=== PATIENT | female | born 1975 | race African-American/Black ===

== ENCOUNTER 2017-06-01 21:09 | Emergency (ER) | payer OTHER ==
[~2017-06-01] VITALS: Ht 170.2 cm; Wt 90.7 kg
[~2017-06-01 21:09] MED LIST: BISA10SU12 RC; Docusate Sodium PO; LORA2TAB PO; PANT40TA2 PO; ZOLP10TA2 PO
[2017-06-01] MEDS ORDERED: TEMA15CA PO (21:39)
[2017-06-01] MEDS ORDERED: POLY17PO4 PO (21:39)
[2017-06-01] MEDS ORDERED: KETOROLAC TROMETHAMINE 30 MG INJ IM ONE (22:30)
[2017-06-01] MEDS ORDERED: KETOROLAC TROMETHAMINE 30 MG INJ ONE (22:36)
[2017-06-01 22:38] LABS: *BILIRUBIN,URIN NEGATIVE (NEGATIVE); *BLOOD, URINE NEGATIVE (NEGATIVE); *CLARITY,URINE SLIGHTLY CLOUDY (CLEAR); *COLOR,URINE YELLOW (YELLOW); *KETONES,URINE TRACE (NEGATIVE); *PROTEIN,URINE NEGATIVE (NEGATIVE); *URINE HCG, QUAL NEGATIVE (NEGATIVE); *UROBILINOGEN,URINE 0.2 E.U./dl (NORMAL); LEUKOCYTE ESTERASE ,URINE TRACE (NEGATIVE); NITRITE, URINE NEGATIVE (NEGATIVE); PH,URINE 5.5 (5.0-8.0); UGLUCOSE NEGATIVE (NEGATIVE)
[2017-06-01 22:57] LABS: BACTERIA,URINE FEW /HPF (NONE SEEN); RBC,URINE 0-3 /HPF (0-3); SQUAMOUS EPITHELIAL CELL,UR FEW /HPF (NONE SEEN)
--- NOTE | 2017-06-01 23:27 | NUR ---
Patient discharged to home in stable conditon. Written and verbal after care instructions given. Patient verbalizes understanding of instructions. Ambulated from ER with stable gait. All belongings with patient. Patient will be driven home by friend in private vehicle.
[2017-06-01 23:28] VITALS: BP 130/74
== END 2017-06-01 23:29 | disposition home or self-care (01) ==
LOC: ER 21:09
DX: K59.00 Constipation, unspecified (principal); F41.9 Anxiety disorder, unspecified; F32.9 Major depressive disorder, single episode, unspecified; K21.9 Gastro-esophageal reflux disease without esophagitis; F10.20 Alcohol dependence, uncomplicated; Z88.6 Allergy status to analgesic agent; Z88.2 Allergy status to sulfonamides; Z88.1 Allergy status to other antibiotic agents; Z88.8 Allergy status to other drugs, medicaments and biological substances; Z85.3 Personal history of malignant neoplasm of breast
CPT/HCPCS: 74022; 81001; 84703; 96372; 99285; A4663; J1885

== ENCOUNTER 2017-12-08 21:37 | Emergency (ER) | payer OTHER ==
[~2017-12-08] VITALS: Ht 170.2 cm; Wt 95.7 kg
[~2017-12-08 21:37] MED LIST changes: -Docusate Sodium PO; +POLY17PO4 PO; +TEMA15CA PO; -ZOLP10TA2 PO
--- NOTE | 2017-12-09 00:20 | NUR ---
ERMD at bedside for MSE.
[2017-12-09 00:46] LABS: *BILIRUBIN,URIN NEGATIVE (NEGATIVE); *BLOOD, URINE Trace-intact (NEGATIVE); *CLARITY,URINE SLIGHTLY CLOUDY (CLEAR); *COLOR,URINE YELLOW (YELLOW); *KETONES,URINE TRACE (NEGATIVE); *PROTEIN,URINE NEGATIVE (NEGATIVE); LEUKOCYTE ESTERASE ,URINE NEGATIVE (NEGATIVE); NITRITE, URINE NEGATIVE (NEGATIVE); UGLUCOSE NEGATIVE (NEGATIVE)
[2017-12-09 00:59] LABS: BASOPHILS # (AUTO) 0.1 K/uL (0.0-8.0); BASOPHILS % (AUTO) 0.7 % (0.0-2.0); EOSINOPHILS % (AUTO) 0.3 % (0.0-7.0); HEMATOCRIT 38.1 % (31.2-41.9); HEMOGLOBIN 12.7 g/dL (10.9-14.3); LYMPHOCYTES # (AUTO) 1.9 K/uL (20.0-40.0); LYMPHOCYTES % (AUTO) 13.4 % (20.5-51.5); MEAN CORPUSCULAR HEMOGLOBIN 27.8 uug (24.7-32.8); MEAN CORPUSCULAR HGB CONC 33 g/dL (32.3-35.6); MEAN CORPUSCULAR VOLUME 83.3 fL (75.5-95.3); MONOCYTES # (AUTO) 0.7 K/uL (2.0-10.0); MONOCYTES % (AUTO) 5.1 % (0.0-11.0); NEUTROPHILS # (AUTO) 11.6 K/uL (1.8-8.9); NEUTROPHILS % (AUTO) 80.5 % (38.5-71.5); PLATELET COUNT (AUTO) 322 K/uL (179-408); RED BLOOD CELL COUNT(AUTO) 4.57 MIL/uL (3.63-4.92); WHITE BLOOD COUNT (AUTO) 14.5 K/uL (3.8-11.8)
[2017-12-09 01:09] LABS: BACTERIA,URINE NONE SEEN /HPF (NONE SEEN)
[2017-12-09 01:10] LABS: SQUAMOUS EPITHELIAL CELL,UR MODERATE /HPF (NONE SEEN); WBC,URINE 0-3 /HPF (0-3)
[2017-12-09 01:11] LABS: CREATININE 0.9 mg/dL (0.6-1.3); POTASSIUM 4.2 mmol/L (3.5-5.1)
[2017-12-09 01:22] LABS: BILIRUBIN,DIRECT 0.1 mg/dL (0.0-0.2); BILIRUBIN,TOTAL 0.3 mg/dL (0.2-1.0); TOTAL PROTEIN, SERUM 8.2 g/dL (6.4-8.2)
--- NOTE | 2017-12-09 02:23 | NUR ---
Patient to Radiology for CT scan via wheelchair, serum negative.
--- NOTE | 2017-12-09 02:38 | NUR ---
Patient returned from CT, no acute distress noted.
--- NOTE | 2017-12-09 03:43 | NUR ---
Patient discharged to home in stable conditon. Written and verbal after care instructions given. Patient verbalizes understanding of instructions.
[2017-12-09] MEDS ORDERED: AMOXICILLIN-CLAVUL 875-125MG TABLET PO ONE (03:45)
[2017-12-09] MEDS ORDERED: AMOXICILLIN-CLAVUL 875-125MG TABLET ONE (03:51)
== END 2017-12-09 03:44 | disposition home or self-care (01) ==
LOC: ER 21:37
DX: K52.9 Noninfective gastroenteritis and colitis, unspecified (principal); K21.9 Gastro-esophageal reflux disease without esophagitis; K44.9 Diaphragmatic hernia without obstruction or gangrene; Z85.3 Personal history of malignant neoplasm of breast; Z88.1 Allergy status to other antibiotic agents; Z88.2 Allergy status to sulfonamides; Z88.5 Allergy status to narcotic agent
CPT/HCPCS: 36415; 83690; 84703; 85025; A4663

== ENCOUNTER 2018-06-10 21:32 | Emergency (ER) | payer OTHER ==
[~2018-06-10] VITALS: Ht 170.2 cm; Wt 95.3 kg
[2018-06-10] MEDS ORDERED: DOCU-141 PO (21:56)
--- NOTE | 2018-06-10 22:33 | NUR ---
Dr. Stewart at bedside for MSE.
[2018-06-10] MEDS ORDERED: METOCLOPRAMIDE HCL 10 MG/2 ML VIAL IM ONE (23:00)
[2018-06-10 23:01] LABS: BASOPHILS # (AUTO) 0.1 K/uL (0.0-8.0); BASOPHILS % (AUTO) 0.6 % (0.0-2.0); EOSINOPHILS # (AUTO) 0.1 K/uL (0.0-0.7); EOSINOPHILS % (AUTO) 1.7 % (0.0-7.0); HEMOGLOBIN 11.8 g/dL (10.9-14.3); LYMPHOCYTES # (AUTO) 1.7 K/uL (20.0-40.0); LYMPHOCYTES % (AUTO) 22.7 % (20.5-51.5); MEAN CORPUSCULAR HEMOGLOBIN 26.7 uug (24.7-32.8); MEAN CORPUSCULAR HGB CONC 33 g/dL (32.3-35.6); MEAN CORPUSCULAR VOLUME 81.7 fL (75.5-95.3); MONOCYTES # (AUTO) 0.2 K/uL (2.0-10.0); MONOCYTES % (AUTO) 2.7 % (0.0-11.0); NEUTROPHILS # (AUTO) 5.6 K/uL (1.8-8.9); NEUTROPHILS % (AUTO) 72.3 % (38.5-71.5); PLATELET COUNT (AUTO) 278 K/uL (179-408); WHITE BLOOD COUNT (AUTO) 7.7 K/uL (3.8-11.8)
[2018-06-10] MEDS ORDERED: METOCLOPRAMIDE HCL 10 MG/2 ML VIAL ONE (23:01)
[2018-06-10 23:12] LABS: BILIRUBIN,DIRECT 0.1 mg/dL (0.0-0.2); BILIRUBIN,TOTAL 0.2 mg/dL (0.2-1.0); CREATININE 0.8 mg/dL (0.6-1.3); TOTAL PROTEIN, SERUM 7.6 g/dL (6.4-8.2)
--- NOTE | 2018-06-10 23:37 | NUR ---
Pt out of ER for CT.
--- NOTE | 2018-06-10 23:50 | NUR ---
Pt back to ER from CT.
--- NOTE | 2018-06-11 00:03 | NUR ---
Pt states she's anxious and her jaw is locking up, requesting if she can get some ativan. notified.
--- NOTE | 2018-06-11 00:05 | NUR ---
Pt states no longer nauseous.
[2018-06-11] MEDS ORDERED: diphenhydrAMINE 50 MG/1 ML VIAL ONE (00:23)
[2018-06-11] MEDS ORDERED: diphenhydrAMINE 50 MG/1 ML VIAL IM ONE (00:30)
--- NOTE | 2018-06-11 00:48 | NUR ---
Patient discharged to home in stable conditon. Written and verbal after care instructions given. Patient verbalizes understanding of instructions. Pt ambulated out of ER with steady gait, no acute signs of distress, VSS, all belongings taken.
[2018-06-11 00:50] VITALS: BP 116/87
== END 2018-06-11 00:50 | disposition home or self-care (01) ==
LOC: ER 21:33
DX: R10.32 Left lower quadrant pain (principal); K21.9 Gastro-esophageal reflux disease without esophagitis; Z88.1 Allergy status to other antibiotic agents; Z88.2 Allergy status to sulfonamides; Z88.8 Allergy status to other drugs, medicaments and biological substances; Z79.899 Other long term (current) drug therapy
CPT/HCPCS: 36415; 70030-TC; 83690; 84703; 85025; 85730; A4663; J1200; J2765

== ENCOUNTER 2018-12-03 14:53 | Emergency (ER) | payer OTHER ==
[~2018-12-03] VITALS: Ht 170.2 cm; Wt 81.6 kg
[~2018-12-03 14:53] MED LIST changes: -BISA10SU12 RC; +DOCU-141 PO
[2018-12-03] MEDS ORDERED: TEMAZEPAM 30 MG CAPSULE (15:10)
[2018-12-03] MEDS ORDERED: BUPROPION HCL XL 300 MG TABLET (15:10)
[2018-12-03] MEDS ORDERED: ONDANSETRON 4 MG/2 ML VIAL ONE (15:24)
[2018-12-03] MEDS ORDERED: IV NORMAL SALINE 1000 ML BAG IV ONE (15:30)
[2018-12-03] MEDS ORDERED: ONDANSETRON 4 MG/2 ML VIAL IV ONE (15:30)
[2018-12-03 15:34] LABS: BASOPHILS # (AUTO) 0.1 K/uL (0.0-8.0); BASOPHILS % (AUTO) 0.9 % (0.0-2.0); EOSINOPHILS % (AUTO) 0.5 % (0.0-7.0); HEMOGLOBIN 10.2 g/dL (10.9-14.3); LYMPHOCYTES # (AUTO) 1.6 K/uL (20.0-40.0); LYMPHOCYTES % (AUTO) 17.2 % (20.5-51.5); MEAN CORPUSCULAR HEMOGLOBIN 24.7 uug (24.7-32.8); MEAN CORPUSCULAR HGB CONC 32 g/dL (32.3-35.6); MEAN CORPUSCULAR VOLUME 77.3 fL (75.5-95.3); MONOCYTES # (AUTO) 0.4 K/uL (2.0-10.0); MONOCYTES % (AUTO) 4.6 % (0.0-11.0); NEUTROPHILS # (AUTO) 7.1 K/uL (1.8-8.9); NEUTROPHILS % (AUTO) 76.8 % (38.5-71.5); PLATELET COUNT (AUTO) 367 K/uL (179-408); RED BLOOD CELL COUNT(AUTO) 4.15 MIL/uL (3.63-4.92); WHITE BLOOD COUNT (AUTO) 9.3 K/uL (3.8-11.8)
[2018-12-03 15:41] LABS: CREATININE 0.8 mg/dL (0.6-1.3); POTASSIUM 3.8 mmol/L (3.5-5.1)
[2018-12-03 15:46] LABS: BILIRUBIN,DIRECT 0.1 mg/dL (0.0-0.2); BILIRUBIN,TOTAL 0.3 mg/dL (0.2-1.0); TOTAL PROTEIN, SERUM 8.2 g/dL (6.4-8.2)
--- NOTE | 2018-12-03 16:12 | NUR ---
Patient is resting comfortably on gurney while using her personal electronic device, NAD.
--- NOTE | 2018-12-03 16:39 | NUR ---
Patient is taking po juice & 2 packets of crackers with good appetite.
--- NOTE | 2018-12-03 16:58 | NUR ---
Patient tolerated & passed the po challenge. Patient denies nausea. IV removed. Catheter intact and site benign. Pressure and 4x4 gauze applied to site. No bleeding noted. Patient discharged to home in stable conditon & brisk steady gait. Written and verbal after care instructions given to patient. Patient verbalizes understanding of instructions.
== END 2018-12-03 17:00 | disposition home or self-care (01) ==
LOC: ER 14:53
DX: R11.2 Nausea with vomiting, unspecified (principal); K21.9 Gastro-esophageal reflux disease without esophagitis; Z88.1 Allergy status to other antibiotic agents; Z88.5 Allergy status to narcotic agent; Z88.2 Allergy status to sulfonamides; Z88.8 Allergy status to other drugs, medicaments and biological substances; Z79.899 Other long term (current) drug therapy
CPT/HCPCS: 36415; 80048; 80076; 83690; 84702; 85025; 96361; 96374; 99283; J2405; A4663; J7030

== ENCOUNTER 2022-08-23 01:42 | Emergency (ER) | payer OTHER ==
[~2022-08-23 01:42] MED LIST changes: +BUPROPION HCL XL 300 MG TABLET; -DOCU-141 PO; -PANT40TA2 PO; -POLY17PO4 PO; +TEMAZEPAM 30 MG CAPSULE
--- NOTE | 2022-08-23 01:53 | NUR ---
Patient walked in the ER with complain of left breast rash and pain x1 month and is worsening. Patient reported taking Motrin yesterday morning and Tylenol ES 2 tabs 6 hours [employer].
--- NOTE | 2022-08-23 02:00 | NUR ---
Dr. Stanton on bedside for MSE.
[2022-08-23 02:09] LABS: HEMATOCRIT 35.5 % (31.2-41.9); MEAN CORPUSCULAR HEMOGLOBIN 27.8 uug (24.7-32.8); MEAN CORPUSCULAR VOLUME 83.2 fL (75.5-95.3); PLATELET COUNT (AUTO) 333 K/uL (179-408)
[2022-08-23 02:22] LABS: ALANINE AMINOTRANSFERASE 20 U/L (14-59); ALKALINE PHOSPHATASE 91 U/L (50-136); ASPARTATE AMINOTRANSFERASE 15 U/L (15-37); BILIRUBIN,DIRECT < 0.1 mg/dL (0.0-0.2); BILIRUBIN,TOTAL 0.1 mg/dL (0.2-1.0); CARBON DIOXIDE 27 mmol/L (21-32); CHLORIDE 108 mmol/L (98-107); GLUCOSE 93 mg/dL (74-106); POTASSIUM 4.5 mmol/L (3.5-5.1); TOTAL PROTEIN, SERUM 7.6 g/dL (6.4-8.2); UREA NITROGEN, BLOOD 12 mg/dL (7-18)
[2022-08-23] MEDS ORDERED: [UNRECOGNIZED DRUG - CODE] MC (02:35)
[2022-08-23 02:43] VITALS: BP 121/86
--- NOTE | 2022-08-23 02:43 | NUR ---
Patient discharged to home in stable condition. Written and verbal after care instructions given. Patient verbalizes understanding of instructions. Stressed follow up or return to ER for worsening s/s. Patient ambulated fr the ER with steady gait. All belongings with patient.
== END 2022-08-23 02:47 | disposition home or self-care (01) ==
LOC: ER 01:50
DX: L30.4 Erythema intertrigo (principal); Z88.1 Allergy status to other antibiotic agents; Z88.5 Allergy status to narcotic agent; Z88.2 Allergy status to sulfonamides; Z85.3 Personal history of malignant neoplasm of breast; Z87.11 Personal history of peptic ulcer disease; K21.9 Gastro-esophageal reflux disease without esophagitis; K44.9 Diaphragmatic hernia without obstruction or gangrene; Z83.3 Family history of diabetes mellitus; Z82.49 Family history of ischemic heart disease and other diseases of the circulatory system; F41.9 Anxiety disorder, unspecified; F32.A Depression, unspecified; Z79.899 Other long term (current) drug therapy
CPT/HCPCS: 36415; 85025; A4663